=== PATIENT | female | born 1970 | race Caucasian/White ===

== ENCOUNTER 2022-01-11 23:14 | Inpatient (IN) | payer OTHER, SELFPAY ==
[2022-01-12 00:10] VITALS: BP 121/80; PULSE 84; RESP 16; TEMP 36.4; O2SAT 94
[2022-01-12] MEDS: traZODone HCL 50 MG TABLET PO ×2 (00:19→20:55)
--- NOTE | 2022-01-12 02:18 | PC.ADMIT ---
Rowena is a 51 year old female who presented to [facility] with increased depression and suicidal thoughts to overdose on her medications. Current stressors are her mother is moving to [place] and patient is unemployed and has not been able to find a new job. Patient has a history of trauma and past suicide attempts. Patient reports a past history of ECT and reports she normally gets treatment once per month with her next scheduled session to be on Thursday January 13, 2022. Patient would like to continue with ECT treatment here at [facility]. Patient feels that her current support system is not working for her and feels she needs to make some adjustments. Patient was cooperative on admission and signed in on a CV. Patient was pleasant and answered all asked questions. Patient has sleep apnea and she reports that she uses a mouth guard at night to help. Patient also reports migraines.
[2022-01-12 07:59] VITALS: BP 108/78; PULSE 69; RESP 17; TEMP 36.6; O2SAT 97
[2022-01-12 07:59] LABS: Estimated Average Glucose 94 mg/dL; Hemoglobin A1c % 4.9 %
[2022-01-12 08:03] LABS: Cholesterol 235 mg/dL; HDL Cholesterol 83 mg/dL; LDL Cholesterol Calculated 139 mg/dl; Triglycerides 66 mg/dL
[2022-01-12 08:21] LABS: Free T4 (Free Thyroxine) 1.06 ng/dL (0.71-1.85); Thyroid Stimulating Hormone 0.55 uIU/mL (0.32-4.0)
[2022-01-12] MEDS: ARIPiprazole 10 MG TABLET PO (08:38)
[2022-01-12] MEDS: Methylphenidate HCl 5 MG TABLET PO ×2 (08:38→13:04)
[2022-01-12 09:35] LABS: Folate > 20.0 ng/mL (> or = 4.0); Vitamin B12 671 pg/mL (200-900)
[2022-01-12 13:24] VITALS: BMI 29.2
[2022-01-12] MEDS: Sodium Bicarbonate 650 MG TABLET 1300 MG PO ×2 (13:29→20:51)
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
[2022-01-12 20:40] VITALS: BP 112/66; PULSE 80; TEMP 36.7; O2SAT 91
[2022-01-12] MEDS: FLUoxetine HCl 20 MG CAPSULE 80 MG PO (20:51)
--- NOTE | 2022-01-13 | ECG_ITS ---
Test Reason : ECT CLEARENCE Blood Pressure : / mmHG Vent. Rate : 067 BPM Atrial Rate : 067 BPM P-R Int : 174 ms QRS Dur : 090 ms QT Int : 402 ms P-R-T Axes : 039 050 067 degrees QTc Int : 424 ms Normal sinus rhythm Normal ECG No previous ECGs available Referred By: Ranjan Alicea Electronically Signed By:TONY BAUER MD
[2022-01-13 08:21] VITALS: BP 105/62; PULSE 65; RESP 17; TEMP 36.6; O2SAT 96
[2022-01-13] MEDS: Methylphenidate HCl 5 MG TABLET PO ×2 (08:49→13:39)
[2022-01-13] MEDS: Sodium Bicarbonate 650 MG TABLET 1300 MG PO ×2 (08:49→21:17)
[2022-01-13] MEDS: ARIPiprazole 10 MG TABLET PO (08:49)
--- NOTE | 2022-01-13 10:48 | P.CONHOSP_ITS ---
History of Present Illness Data of Consult Service Date: 01/13/22 Primary Care Provider: Wilson Solorzano MD HPI Reason for consult: Routine Medical H&P This is a 51 year old female who is admitted to the inpatient psychiatric unit. Medical consult requested for routine medical H&P. Pt seen and examined in the exam room. Floor RN bedside. Pt reports a history of IBS for which she takes intermittent loperamide. Reports history of MI - on a mouth guard for this. PMH IBS MI PSH ACL repair FH Abdominal cancer in father -- diagnosed in his 60s SH Denies Tobacco, alcohol, illicit substance Review of Systems Review of Systems: negative except HPI [facility] Medical History (Updated 01/13/22 @ 11:23 by Aaron Martin MD) Irritable bowel Migraines Sleep apnea Social History Household Members: Spouse Housing: House Do you presently have visiting nurse or other home services: No Patient Tobacco Use Status: Never used Tobacco Use of substances other than those prescribed or required for medical reasons: No Currently Displaying Signs/Symptoms of Drug Intoxication Withdrawal: No Any prior treatment program specific to substance use: No Have you been hit, kicked, punched, or otherwise hurt by someone within the past year? If so, by whom?: No Do you feel safe in your current relationship?: Yes Is there a partner from a previous relationship who is making you feel unsafe now?: No Are you made to feel afraid or neglected: No Spiritual Healthcare Practices: [facility] Evangelical Healthcare Practices: see above Cultural Healthcare Practices: none reported. Advance Directives: No Advance Directives Information Provided: No Advance Directives on File: No Do you have thoughts of harming others: None Do you have a plan to hurt others: No Plan Recently lost weight without trying: No Eating poorly because of decreased appetite: No Nutrition Risks: No Nutritional Risk Patient : No : No Poor oral hygiene: No service: No Sexual orientation: Straight/Heterosexual Meds Allergies Allergy/AdvReac Type Severity Reaction Status Date / Time Sulfa (Sulfonamide AdvReac Wheezing Verified 01/12/22 00:35 Antibiotics) Active Medications: Current Medications Acetaminophen (Acetaminophen 325 Mg Tablet) 650 mg PO Q6H PRN PRN Reason: Headache/Pain Mild Scale (1-3) Al Hydroxide/Mg Hydroxide (Magnesium Hydrox/Alum Hydrox 30 Ml Oral.Susp) 30 ml PO Q6H PRN PRN Reason: Heartburn/Nausea Aripiprazole (Aripiprazole 10 Mg Tablet) 10 mg PO DAILY [facility] Last Admin: 01/13/22 08:49 Dose: 10 mg Documented by: Fluoxetine HCl (Fluoxetine Hcl 20 Mg Capsule) 80 mg PO BEDTIME [facility] Last Admin: 01/12/22 20:51 Dose: 80 mg Documented by: Hydroxyzine HCl (Hydroxyzine Hcl 25 Mg Tablet) 25 mg PO Q6H PRN PRN Reason: Anxiety Lorazepam (Lorazepam 1 Mg Tablet) 1 mg PO BID PRN PRN Reason: severe anxiety Magnesium Hydroxide (Milk Of Magnesia 30 Ml Oral.Susp) 30 ml PO DAILY PRN PRN Reason: Constipation Methylphenidate HCl (Methylphenidate Hcl 5 Mg Tablet) 5 mg PO BID@0800,1300 [facility] Last Admin: 01/13/22 08:49 Dose: 5 mg Documented by: Sodium Bicarbonate (Sodium Bicarbonate 650 Mg Tablet) 1,300 mg PO BID [facility] Last Admin: 01/13/22 08:49 Dose: 1,300 mg Documented by: Sumatriptan Succinate (Sumatriptan Succinate 100 Mg Tablet) 100 mg PO DAILY PRN PRN Reason: Migraine Headache Trazodone HCl (Trazodone Hcl 50 Mg Tablet) 50 mg PO BEDTIME PRN PRN Reason: Insomnia Last Admin: 01/12/22 20:55 Dose: 50 mg Documented by: Home Medications Medication Instructions Recorded Confirmed Last Taken Type aripiprazole 10 mg tablet (Abilify) 10 mg PO DAILY 01/12/22 01/12/22 Unknown History methylphenidate HCl 5 mg tablet 5 mg PO BID@0800,1300 01/12/22 01/12/22 01/10/22 History (Ritalin) [id number] acid See Rx Instructions .ROUTE .COMPLEX 01/12/22 Unknown History 400 mcg-vitamin K 80 mcg capsule (Multi For Her 50 Plus) sodium bicarbonate 650 mg tablet 650 mg PO QID PRN 01/12/22 01/12/22 Unknown History Physical Exam Vital Signs and Narrative: Vital Signs: Last Vital Signs Temp 97.9 F 01/13/22 08:21 Pulse 65 01/13/22 08:21 Resp 17 01/13/22 08:21 BP 105/62 01/13/22 08:21 Pulse Ox 96 01/13/22 08:21 BMI result Body Mass Index 29.2 Const: Other: Constitutional - Awake and Alert, No apparent distress Eyes - PERRLA, EOMI Cardiovascular - S1S2, RRR, No edema Respiratory - Normal lung expansion, Normal respiratory effort, No respiratory distress, CTA bilaterally Gastrointestinal - NT / ND; +BS; No rebound or guarding - No CVA tenderness Extremities - no calf tenderness bilaterally, no swelling Musculoskeletal - Normal inspection, normal ROM Skin - Warm/Dry Neurological - Alert & oriented x3, No focal deficit; CN 2-12 intact b/l Psychological - Flat affect Assessment and Plan (1) Routine medical exam: Status: Acute Plan This is a 51 year old female who is admitted to the inpatient psychiatric unit. Medical consult requested for routine medical H&P. No active medical issues. For her MI -- would recommend to bring her mouth piece / guard she uses. Will sign off at this time. Please reconsult PRN.
--- NOTE | 2022-01-13 12:22 | P.PNPSI_ITS ---
Subjective Subjective Date of Service: 01/13/22 Reason For Visit: Unspecified bipolar d/o Interim History: pt reports no changes from yesterday. endorses SI without intent or plan here but multiple ideas for outside of the hospital. states she is safe here for the time being. asks for loperamide 2 mg every 3 days, which is prescribed for todat, 01/16, and 01/19. states she is sleeping OK, eating OK, toileting OK. mood not so great. would like to pursue ECT. per staff, attending groups. anx 05/16. feels ECT has not been working for her recently. depression 08/16. if i got the chance, i'd kill myself. safe here bcse no opportunities. pacing, calm, cooperative. Mental Status Exam Mental Status Exam Narrative: appropriately dressed and groomed. cooperative with interview. general PMR, fair eye contact. speech soft, slowed, decreased in amount. thoughts linear and logical. affect constricted. mood not so great. SI continues. no HI/AVH expressed. Diagnostics Vital Signs (24Hr): Vital Signs - 24 hr 01/12/22 20:40 01/13/22 08:21 Temperature 98.1 F 97.9 F Pulse Rate 80 65 Respiratory Rate 17 Blood Pressure 112/66 105/62 Pulse Oximetry 91 L 96 BMI result Body Mass Index 29.2 Labs Labs: Laboratory Results - last 48 hr 01/12/22 01/12/22 01/12/22 07:33 07:33 07:33 Estimat Average Glucose 94 Hemoglobin A1c % 4.9 Magnesium 2.0 Triglycerides 66 Cholesterol 235 LDL Cholesterol, Calc 139 HDL Cholesterol 83 Vitamin B12 671 Folate > 20.0 TSH 0.55 Free T4 1.06 Medications Medications Current Medications Acetaminophen (Acetaminophen 325 Mg Tablet) 650 mg PO Q6H PRN PRN Reason: Headache/Pain Mild Scale (1-3) Al Hydroxide/Mg Hydroxide (Magnesium Hydrox/Alum Hydrox 30 Ml Oral.Susp) 30 ml PO Q6H PRN PRN Reason: Heartburn/Nausea Aripiprazole (Aripiprazole 10 Mg Tablet) 10 mg PO DAILY [facility] Last Admin: 01/13/22 08:49 Dose: 10 mg Documented by: Fluoxetine HCl (Fluoxetine Hcl 20 Mg Capsule) 80 mg PO BEDTIME [facility] Last Admin: 01/12/22 20:51 Dose: 80 mg Documented by: Hydroxyzine HCl (Hydroxyzine Hcl 25 Mg Tablet) 25 mg PO Q6H PRN PRN Reason: Anxiety Loperamide HCl (Loperamide Hcl 2 Mg Capsule) 2 mg PO ONCE ONE Stop: 01/16/22 11:11 Loperamide HCl (Loperamide Hcl 2 Mg Capsule) 2 mg PO ONCE ONE Stop: 01/19/22 11:09 Lorazepam (Lorazepam 1 Mg Tablet) 1 mg PO BID PRN PRN Reason: severe anxiety Magnesium Hydroxide (Milk Of Magnesia 30 Ml Oral.Susp) 30 ml PO DAILY PRN PRN Reason: Constipation Methylphenidate HCl (Methylphenidate Hcl 5 Mg Tablet) 5 mg PO BID@0800,1300 [facility] Last Admin: 01/13/22 08:49 Dose: 5 mg Documented by: Sodium Bicarbonate (Sodium Bicarbonate 650 Mg Tablet) 1,300 mg PO BID [facility] Last Admin: 01/13/22 08:49 Dose: 1,300 mg Documented by: Sumatriptan Succinate (Sumatriptan Succinate 100 Mg Tablet) 100 mg PO DAILY PRN PRN Reason: Migraine Headache Trazodone HCl (Trazodone Hcl 50 Mg Tablet) 50 mg PO BEDTIME PRN PRN Reason: Insomnia Last Admin: 01/12/22 20:55 Dose: 50 mg Documented by: Allergies Allergies Allergy/AdvReac Type Severity Reaction Status Date / Time Sulfa (Sulfonamide AdvReac Wheezing Verified 01/12/22 00:35 Antibiotics) Assessment & Plan Assessment & Plan (1) Depressive disorder: Status: Acute Code(s): F32.A - Depression, unspecified (2) PTSD (post-traumatic stress disorder): Status: Acute Code(s): F43.10 - Post-traumatic stress disorder, unspecified (3) Routine medical exam: Status: Acute Code(s): Z00.00 - Encounter for general adult medical examination without abnormal findings Assessment and Plan: This is a 51 year old female who is admitted to the inpatient psychiatric unit. Medical consult requested for routine medical H&P. No active medical issues. For her MI -- would recommend to bring her mouth piece / guard she uses. Will sign off at this time. Please reconsult PRN. Plan continue outpt medications. medicine consult for ECT clearance. pt's to bring in mouth guard for MI. EKG labs for ECT clearance SUSAN signed, SW to [place] [facility] potential ECT start date of tuesday. I spent ____30__ minutes with the patient and/or on the patient floor today, greater than?50% of which was spent counseling/coordinating care. Reason for contiued inpatient stay Substantial Risk for: harm to self, inability to function and rapid decompensation
[2022-01-13] MEDS: Loperamide HCl 2 MG CAPSULE PO (13:39)
[2022-01-13 13:53] LABS: MANUAL DIFF FLAG NO
[2022-01-13 13:56] LABS: Basophils Percent Auto 0.2 % (0-2); Eosinophils Absolute Auto 0.1 X10*3/uL (0.0-0.4); Eosinophils Percent Auto 1.1 % (0-4); Hematocrit 38.9 % (37.0-47.0); Hemoglobin 12.7 g/dl (12.0-16.0); Imm Gran Abs Auto 0.04 X10*3/uL (0.00-0.03); Imm Gran Pct Auto 0.5 % (0.0-0.4); Lymphocytes Absolute Auto 1.5 X10*3/uL (1.2-4.9); Lymphocytes Percent Auto 17.9 % (20-40); Mean Corpuscular HGB Conc 32.6 g/dl (31.0-35.0); Mean Corpuscular Hemoglobin 31.3 pg (27.0-33.0); Mean Corpuscular Volume 95.8 fL (80.0-98.0); Mean Platelet Volume 8.1 fL (9.4-12.3); Monocytes Absolute Auto 0.5 X10*3/uL (0.1-1.2); Monocytes Percent Auto 6.4 % (2-11); Neutrophils Absolute Auto 6.1 x10*3/uL (2.0-8.3); Neutrophils Percent Auto 73.9 % (45-73); Platelet Count 236 X10*3/uL (160-400); Red Blood Count 4.06 X10*6/uL (4.20-5.50); Red Cell Distribution Width 13.1 % (11.0-16.0); White Blood Count 8.3 X10*3/uL (4.8-10.8)
[2022-01-13 14:11] LABS: Anion Gap 12 (12-20); Blood Urea Nitrogen 28 mg/dL (9-16); Calcium 9.6 mg/dL (8.4-10.2); Carbon Dioxide 26 mmol/L (22-29); Chloride 103 mmol/L (96-108); Creatinine Clr Calc Pharmacy 52.5; Estimated Glomerular Filt Rate 42; Glucose Random 112 mg/dL (60-115); Potassium 4.4 mmol/L (3.3-5.1); Sodium 137 mmol/L (135-145)
[2022-01-13 20:15] VITALS: BP 127/68; PULSE 68; RESP 16; TEMP 36.7; O2SAT 99
[2022-01-13] MEDS: FLUoxetine HCl 20 MG CAPSULE 80 MG PO (21:16)
[2022-01-13] MEDS: traZODone HCL 50 MG TABLET PO (21:21)
[2022-01-14 07:00] VITALS: BMI 29.8
[2022-01-14] MEDS: ARIPiprazole 10 MG TABLET PO (08:30)
[2022-01-14] MEDS: Sodium Bicarbonate 650 MG TABLET 1300 MG PO ×2 (08:30→21:20)
[2022-01-14] MEDS: Methylphenidate HCl 5 MG TABLET PO (08:30)
[2022-01-14 08:53] VITALS: BP 115/73; PULSE 74; RESP 18; TEMP 36.4; O2SAT 99
[2022-01-14] MEDS: Methylphenidate HCl 5 MG TABLET 7.5 MG PO (12:49)
--- NOTE | 2022-01-14 14:05 | P.PNPSI_ITS ---
Subjective Subjective Date of Service: 01/14/22 Reason For Visit: Unspecified bipolar d/o Interim History: pt appears blunted, comes for interview. states she is having a bad day today. more down, doesn't have any insight why that might be. plan for ECT reviewed, attempting to get records from [facility]. request was faxed this morning. agreeable to increase methylphenidate to 7.5 mg BID. informed she was medically cleared for ECT yesterday. per staff, Q5 min checks at night due to mouth guard. sad re father's passing, mother's selling home. safe in hospital, not outside. pacing eves. quiet, visible, watching TV. slept well overnight. Mental Status Exam Mental Status Exam Narrative: appropriately dressed and groomed. cooperative with interview. general PMR, fair eye contact. speech soft, slowed, decreased in amount. thoughts linear and logical. affect blunted. mood more down today. SI continues. no HI/AVH expressed. Diagnostics Vital Signs (24Hr): Vital Signs - 24 hr 01/13/22 20:15 01/14/22 08:53 Temperature 98.0 F 97.6 F Pulse Rate 68 74 Respiratory Rate 16 18 Blood Pressure 127/68 115/73 Pulse Oximetry 99 99 BMI result Body Mass Index 29.2 Labs Results: 01/13/22 13:47 01/13/22 13:47 Labs: Laboratory Results - last 48 hr 01/13/22 01/13/22 13:47 13:47 WBC 8.3 RBC 4.06 L Hgb 12.7 Hct 38.9 MCV 95.8 MCH 31.3 MCHC 32.6 RDW 13.1 Plt Count 236 MPV 8.1 L Immature Gran % (Auto) 0.5 H Neut % (Auto) 73.9 H Lymph % (Auto) 17.9 L [place] % (Auto) 6.4 Eos % (Auto) 1.1 Baso % (Auto) 0.2 Lymph # (Auto) 1.5 [place] # (Auto) 0.5 Eos # (Auto) 0.1 Baso # (Auto) 0.0 Abs Immat Gran (auto) 0.04 H Absolute Neuts (auto) 6.1 Absolute Nucleated RBC 0.000 Nucleated RBC % (auto) 0.0 Sodium 137 Potassium 4.4 Chloride 103 Carbon Dioxide 26 Anion Gap 12 BUN 28 H Creatinine 1.32 Estim Creat Clear Calc 52.5 Estimated GFR 42 Random Glucose 112 Calcium 9.6 Medications Medications Current Medications Acetaminophen (Acetaminophen 325 Mg Tablet) 650 mg PO Q6H PRN PRN Reason: Headache/Pain Mild Scale (1-3) Al Hydroxide/Mg Hydroxide (Magnesium Hydrox/Alum Hydrox 30 Ml Oral.Susp) 30 ml PO Q6H PRN PRN Reason: Heartburn/Nausea Aripiprazole (Aripiprazole 10 Mg Tablet) 10 mg PO DAILY [facility] Last Admin: 01/14/22 08:30 Dose: 10 mg Documented by: Fluoxetine HCl (Fluoxetine Hcl 20 Mg Capsule) 80 mg PO BEDTIME [facility] Last Admin: 01/13/22 21:16 Dose: 80 mg Documented by: Hydroxyzine HCl (Hydroxyzine Hcl 25 Mg Tablet) 25 mg PO Q6H PRN PRN Reason: Anxiety Loperamide HCl (Loperamide Hcl 2 Mg Capsule) 2 mg PO ONCE ONE Stop: 01/16/22 11:11 Loperamide HCl (Loperamide Hcl 2 Mg Capsule) 2 mg PO ONCE ONE Stop: 01/19/22 11:09 Lorazepam (Lorazepam 1 Mg Tablet) 1 mg PO BID PRN PRN Reason: severe anxiety Magnesium Hydroxide (Milk Of Magnesia 30 Ml Oral.Susp) 30 ml PO DAILY PRN PRN Reason: Constipation Methylphenidate HCl (Methylphenidate Hcl 5 Mg Tablet) 7.5 mg PO BID@0800,1300 [facility] Last Admin: 01/14/22 12:49 Dose: 7.5 mg Documented by: Sodium Bicarbonate (Sodium Bicarbonate 650 Mg Tablet) 1,300 mg PO BID [facility] Last Admin: 01/14/22 08:30 Dose: 1,300 mg Documented by: Sumatriptan Succinate (Sumatriptan Succinate 100 Mg Tablet) 100 mg PO DAILY PRN PRN Reason: Migraine Headache Trazodone HCl (Trazodone Hcl 50 Mg Tablet) 50 mg PO BEDTIME PRN PRN Reason: Insomnia Last Admin: 01/13/22 21:21 Dose: 50 mg Documented by: Allergies Allergies Allergy/AdvReac Type Severity Reaction Status Date / Time Sulfa (Sulfonamide AdvReac Wheezing Verified 01/12/22 00:35 Antibiotics) Assessment & Plan Assessment & Plan (1) Depressive disorder: Status: Acute Code(s): F32.A - Depression, unspecified (2) PTSD (post-traumatic stress disorder): Status: Acute Code(s): F43.10 - Post-traumatic stress disorder, unspecified (3) Routine medical exam: Status: Acute Code(s): Z00.00 - Encounter for general adult medical examination without abnormal findings Plan continue outpt medications; methylphenidate increased from 5 BID to 7.5 BID as of 01/14. medicine consult for ECT clearance completed; pt cleared. pt's to brought in mouth guard for MI. on Q5 mnin checks NOC. SUSAN signed, faxed to [facility] 01/14/22. potential ECT start date of tuesday. I spent ___35___ minutes with the patient and/or on the patient floor today, greater than?50% of which was spent counseling/coordinating care. Reason for contiued inpatient stay Substantial Risk for: harm to self, inability to function and rapid decompensation
[2022-01-14 21:00] VITALS: BP 123/69; PULSE 75; RESP 17; TEMP 36.9; O2SAT 96
[2022-01-14] MEDS: FLUoxetine HCl 20 MG CAPSULE 80 MG PO (21:12)
[2022-01-14] MEDS: traZODone HCL 50 MG TABLET PO (21:20)
[2022-01-15] MEDS: ARIPiprazole 10 MG TABLET PO (09:08)
[2022-01-15] MEDS: Methylphenidate HCl 5 MG TABLET 7.5 MG PO ×2 (09:08→12:52)
[2022-01-15] MEDS: Sodium Bicarbonate 650 MG TABLET 1300 MG PO ×2 (09:09→22:09)
[2022-01-15 09:20] VITALS: BP 116/73; PULSE 75; RESP 20; TEMP 36.3; O2SAT 98
--- NOTE | 2022-01-15 13:23 | P.PNPSI_ITS ---
Subjective Subjective Date of Service: 01/15/22 Reason For Visit: Unspecified bipolar d/o Interim History: pt agreeable for interview. calm, cooperative, flat. states she met with dr. boyer and will be starting ECT on tuesday. reports since increasing the stimulant dosing she is feeling a little better. SI is more in the back of my mind. sleeping OK, eating OK, getting along with others well. per staff, attending groups. depression 08/16 yesterday. anxiety 04/16. did not receive ECT today. quiet, isolative, delayed. +SI, no plan. declined 1:1 mtg. slept well. Mental Status Exam Mental Status Exam Narrative: appropriately dressed and groomed. cooperative with interview. general PMR, fair eye contact. speech soft, slowed, decreased in amount. thoughts linear an d logical. affect blunted. mood feeling a little better. SI more in the back of my mind. no HI/AVH expressed. Diagnostics Vital Signs (24Hr): Vital Signs - 24 hr 01/14/22 21:00 01/15/22 09:20 Temperature 98.4 F 97.3 F Pulse Rate 75 75 Respiratory Rate 17 20 Blood Pressure 123/69 116/73 Pulse Oximetry 96 98 BMI result Body Mass Index 29.8 Labs Results: 01/13/22 13:47 01/13/22 13:47 Labs: Laboratory Results - last 48 hr 01/13/22 01/13/22 13:47 13:47 WBC 8.3 RBC 4.06 L Hgb 12.7 Hct 38.9 MCV 95.8 MCH 31.3 MCHC 32.6 RDW 13.1 Plt Count 236 MPV 8.1 L Immature Gran % (Auto) 0.5 H Neut % (Auto) 73.9 H Lymph % (Auto) 17.9 L [place] % (Auto) 6.4 Eos % (Auto) 1.1 Baso % (Auto) 0.2 Lymph # (Auto) 1.5 [place] # (Auto) 0.5 Eos # (Auto) 0.1 Baso # (Auto) 0.0 Abs Immat Gran (auto) 0.04 H Absolute Neuts (auto) 6.1 Absolute Nucleated RBC 0.000 Nucleated RBC % (auto) 0.0 Sodium 137 Potassium 4.4 Chloride 103 Carbon Dioxide 26 Anion Gap 12 BUN 28 H Creatinine 1.32 Estim Creat Clear Calc 52.5 Estimated GFR 42 Random Glucose 112 Calcium 9.6 Medications Medications Current Medications Acetaminophen (Acetaminophen 325 Mg Tablet) 650 mg PO Q6H PRN PRN Reason: Headache/Pain Mild Scale (1-3) Al Hydroxide/Mg Hydroxide (Magnesium Hydrox/Alum Hydrox 30 Ml Oral.Susp) 30 ml PO Q6H PRN PRN Reason: Heartburn/Nausea Aripiprazole (Aripiprazole 10 Mg Tablet) 10 mg PO DAILY [facility] Last Admin: 01/15/22 09:08 Dose: 10 mg Documented by: Fluoxetine HCl (Fluoxetine Hcl 20 Mg Capsule) 80 mg PO BEDTIME [facility] Last Admin: 01/14/22 21:12 Dose: 80 mg Documented by: Hydroxyzine HCl (Hydroxyzine Hcl 25 Mg Tablet) 25 mg PO Q6H PRN PRN Reason: Anxiety Loperamide HCl (Loperamide Hcl 2 Mg Capsule) 2 mg PO ONCE ONE Stop: 01/16/22 11:11 Loperamide HCl (Loperamide Hcl 2 Mg Capsule) 2 mg PO ONCE ONE Stop: 01/19/22 11:09 Lorazepam (Lorazepam 1 Mg Tablet) 1 mg PO BID PRN PRN Reason: severe anxiety Magnesium Hydroxide (Milk Of Magnesia 30 Ml Oral.Susp) 30 ml PO DAILY PRN PRN Reason: Constipation Methylphenidate HCl (Methylphenidate Hcl 5 Mg Tablet) 7.5 mg PO BID@0800,1300 [facility] Last Admin: 01/15/22 12:52 Dose: 7.5 mg Documented by: Sodium Bicarbonate (Sodium Bicarbonate 650 Mg Tablet) 1,300 mg PO BID [facility] Last Admin: 01/15/22 09:09 Dose: 1,300 mg Documented by: Sumatriptan Succinate (Sumatriptan Succinate 100 Mg Tablet) 100 mg PO DAILY PRN PRN Reason: Migraine Headache Trazodone HCl (Trazodone Hcl 50 Mg Tablet) 50 mg PO BEDTIME PRN PRN Reason: Insomnia Last Admin: 01/14/22 21:20 Dose: 50 mg Documented by: Allergies Allergies Allergy/AdvReac Type Severity Reaction Status Date / Time Sulfa (Sulfonamide AdvReac Wheezing Verified 01/12/22 00:35 Antibiotics) Assessment & Plan Assessment & Plan (1) Depressive disorder: Status: Acute Code(s): F32.A - Depression, unspecified (2) PTSD (post-traumatic stress disorder): Status: Acute Code(s): F43.10 - Post-traumatic stress disorder, unspecified (3) Routine medical exam: Status: Acute Code(s): Z00.00 - Encounter for general adult medical examination without abnormal findings Plan continue outpt medications; methylphenidate increased from 5 BID to 7.5 BID as of 01/14. medicine consult for ECT clearance completed; pt cleared. pt's to brought in mouth guard for MI[facility] SUSAN signed, faxed to [facility] 01/14/22. ECT records received 01/15. ECT start date of thursday 01/18. I spent ___25___ minutes with the patient and/or on the patient floor today, greater than?50% of which was spent counseling/coordinating care. Reason for contiued inpatient stay Substantial Risk for: harm to self, inability to function and rapid decompensation
--- NOTE | 2022-01-15 15:19 | P.CONAN1_ITS ---
History of Present Illness Consult details Consult date: 01/18/22 Reason for consult: other Requesting physician: Reese Remy Narrative: Patient discharged from [facility] on ____ from a psychiatric admission. Seen for ECT clearance. [facility] Past Medical History Medical History (Updated 01/15/22 @ 15:22 by Che Villareal NP) Depressive disorder Irritable bowel Migraines Sleep apnea Social History Social History Household Members: Spouse Housing: House Do you presently have visiting nurse or other home services: No Patient Tobacco Use Status: Never used Tobacco Use of substances other than those prescribed or required for medical reasons: No Currently Displaying Signs/Symptoms of Drug Intoxication Withdrawal: No Any prior treatment program specific to substance use: No Have you been hit, kicked, punched, or otherwise hurt by someone within the past year? If so, by whom?: No Do you feel safe in your current relationship?: Yes Is there a partner from a previous relationship who is making you feel unsafe now?: No Are you made to feel afraid or neglected: No Spiritual Healthcare Practices: Yarsanism Confucianist Healthcare Practices: see above Cultural Healthcare Practices: none reported. Advance Directives: No Advance Directives Information Provided: No Advance Directives on File: No Do you have thoughts of harming others: None Do you have a plan to hurt others: No Plan Recently lost weight without trying: No Eating poorly because of decreased appetite: No Nutrition Risks: No Nutritional Risk Patient : No : No Poor oral hygiene: No service: No Sexual orientation: Straight/Heterosexual Meds Allergies Allergy/AdvReac Type Severity Reaction Status Date / Time Sulfa (Sulfonamide AdvReac Wheezing Verified 01/12/22 00:35 Antibiotics) Active Medications: Current Medications Acetaminophen (Acetaminophen 325 Mg Tablet) 650 mg PO Q6H PRN PRN Reason: Headache/Pain Mild Scale (1-3) Al Hydroxide/Mg Hydroxide (Magnesium Hydrox/Alum Hydrox 30 Ml Oral.Susp) 30 ml PO Q6H PRN PRN Reason: Heartburn/Nausea Aripiprazole (Aripiprazole 10 Mg Tablet) 10 mg PO DAILY [facility] Last Admin: 01/15/22 09:08 Dose: 10 mg Documented by: Fluoxetine HCl (Fluoxetine Hcl 20 Mg Capsule) 80 mg PO BEDTIME [facility] Last Admin: 01/14/22 21:12 Dose: 80 mg Documented by: Hydroxyzine HCl (Hydroxyzine Hcl 25 Mg Tablet) 25 mg PO Q6H PRN PRN Reason: Anxiety Loperamide HCl (Loperamide Hcl 2 Mg Capsule) 2 mg PO ONCE ONE Stop: 01/16/22 11:11 Loperamide HCl (Loperamide Hcl 2 Mg Capsule) 2 mg PO ONCE ONE Stop: 01/19/22 11:09 Lorazepam (Lorazepam 1 Mg Tablet) 1 mg PO BID PRN PRN Reason: severe anxiety Magnesium Hydroxide (Milk Of Magnesia 30 Ml Oral.Susp) 30 ml PO DAILY PRN PRN Reason: Constipation Methylphenidate HCl (Methylphenidate Hcl 5 Mg Tablet) 7.5 mg PO BID@0800,1300 [facility] Last Admin: 01/15/22 12:52 Dose: 7.5 mg Documented by: Sodium Bicarbonate (Sodium Bicarbonate 650 Mg Tablet) 1,300 mg PO BID [facility] Last Admin: 01/15/22 09:09 Dose: 1,300 mg Documented by: Sumatriptan Succinate (Sumatriptan Succinate 100 Mg Tablet) 100 mg PO DAILY PRN PRN Reason: Migraine Headache Trazodone HCl (Trazodone Hcl 50 Mg Tablet) 50 mg PO BEDTIME PRN PRN Reason: Insomnia Last Admin: 01/14/22 21:20 Dose: 50 mg Documented by: Home Medications Medication Instructions Recorded Confirmed Last Taken Type aripiprazole 10 mg tablet (Abilify) 10 mg PO DAILY 01/12/22 01/12/22 Unknown History methylphenidate HCl 5 mg tablet 5 mg PO BID@0800,1300 01/12/22 01/12/22 01/10/22 History (Ritalin) [id number] acid See Rx Instructions .ROUTE .COMPLEX 01/12/22 Unknown History 400 mcg-vitamin K 80 mcg capsule (Multi For Her 50 Plus) sodium bicarbonate 650 mg tablet 650 mg PO QID PRN 01/12/22 01/12/22 Unknown History Physical Exam Vital Signs: Vital Signs: Last Vital Signs Temp 97.3 F 01/15/22 09:20 Pulse 75 01/15/22 09:20 Resp 20 01/15/22 09:20 BP 116/73 01/15/22 09:20 Pulse Ox 98 01/15/22 09:20 BMI result Body Mass Index 29.8 Results Labs Result diagrams: 01/13/22 13:47 01/13/22 13:47 Labs: All other labs normal.
[2022-01-15 22:03] VITALS: BP 119/67; PULSE 76; TEMP 36.6; O2SAT 96
[2022-01-15] MEDS: FLUoxetine HCl 20 MG CAPSULE 80 MG PO (22:10)
[2022-01-15] MEDS: traZODone HCL 50 MG TABLET PO (22:10)
[2022-01-16 08:58] VITALS: BP 116/68; PULSE 70; RESP 16; TEMP 36.3; O2SAT 100
[2022-01-16] MEDS: Methylphenidate HCl 5 MG TABLET 7.5 MG PO ×2 (09:07→13:36)
[2022-01-16] MEDS: ARIPiprazole 10 MG TABLET PO (09:07)
[2022-01-16] MEDS: Sodium Bicarbonate 650 MG TABLET 1300 MG PO ×2 (09:10→21:21)
--- NOTE | 2022-01-16 09:52 | P.PNPSI_ITS ---
Subjective Subjective Date of Service: 01/16/22 Reason For Visit: Unspecified bipolar d/o Subjective Notes: Conditional Voluntary Interim History: pt easily engaged; calm, cooperative, flat. reports starting ECT on tuesday. reports SI is still present but is less intense. sleeping fair, eating, taking fluids, getting along with others well. per staff, attending groups. Still reports depression 08/16 and anxiety 04/16. Medication Compliance: Yes Side effects from medications: No Attending Groups: Yes Review of Systems Acute medical concerns: No Medical Review of Systems: unchanged Review of Systems Review of Systems small blister on left heel Yes all other systems are reviewed and are negative Mental Status Exam Mental Status Exam Narrative: appropriately dressed and groomed. cooperative with interview. fair eye contact. speech soft, slowed, decreased in amount. thoughts linear and logical. affect blunted. mood feeling a little better. contiued SI but less intense and no plan or intent, no HI/AVH expressed. Judgement: Fair Diagnostics Vital Signs (24Hr): Vital Signs - 24 hr 01/15/22 22:03 01/16/22 08:58 Temperature 97.8 F 97.4 F Pulse Rate 76 70 Respiratory Rate 16 Blood Pressure 119/67 116/68 Pulse Oximetry 96 100 BMI result Body Mass Index 29.8 Labs Results: 01/13/22 13:47 01/13/22 13:47 Medications Medications Current Medications Acetaminophen (Acetaminophen 325 Mg Tablet) 650 mg PO Q6H PRN PRN Reason: Headache/Pain Mild Scale (1-3) Al Hydroxide/Mg Hydroxide (Magnesium Hydrox/Alum Hydrox 30 Ml Oral.Susp) 30 ml PO Q6H PRN PRN Reason: Heartburn/Nausea Aripiprazole (Aripiprazole 10 Mg Tablet) 10 mg PO DAILY [facility] Last Admin: 01/16/22 09:07 Dose: 10 mg Documented by: Fluoxetine HCl (Fluoxetine Hcl 20 Mg Capsule) 80 mg PO BEDTIME [facility] Last Admin: 01/15/22 22:10 Dose: 80 mg Documented by: Hydroxyzine HCl (Hydroxyzine Hcl 25 Mg Tablet) 25 mg PO Q6H PRN PRN Reason: Anxiety Loperamide HCl (Loperamide Hcl 2 Mg Capsule) 2 mg PO ONCE ONE Stop: 01/16/22 11:11 Loperamide HCl (Loperamide Hcl 2 Mg Capsule) 2 mg PO ONCE ONE Stop: 01/19/22 11:09 Lorazepam (Lorazepam 1 Mg Tablet) 1 mg PO BID PRN PRN Reason: severe anxiety Magnesium Hydroxide (Milk Of Magnesia 30 Ml Oral.Susp) 30 ml PO DAILY PRN PRN Reason: Constipation Methylphenidate HCl (Methylphenidate Hcl 5 Mg Tablet) 7.5 mg PO BID@0800,1300 [facility] Last Admin: 01/16/22 09:07 Dose: 7.5 mg Documented by: Sodium Bicarbonate (Sodium Bicarbonate 650 Mg Tablet) 1,300 mg PO BID [facility] Last Admin: 01/16/22 09:10 Dose: 1,300 mg Documented by: Sumatriptan Succinate (Sumatriptan Succinate 100 Mg Tablet) 100 mg PO DAILY PRN PRN Reason: Migraine Headache Trazodone HCl (Trazodone Hcl 50 Mg Tablet) 50 mg PO BEDTIME PRN PRN Reason: Insomnia Last Admin: 01/15/22 22:10 Dose: 50 mg Documented by: Allergies Allergies Allergy/AdvReac Type Severity Reaction Status Date / Time Sulfa (Sulfonamide AdvReac Wheezing Verified 01/12/22 00:35 Antibiotics) Assessment & Plan Assessment & Plan (1) Depressive disorder: Status: Acute Code(s): F32.A - Depression, unspecified (2) PTSD (post-traumatic stress disorder): Status: Acute Code(s): F43.10 - Post-traumatic stress disorder, unspecified (3) Routine medical exam: Status: Acute Code(s): Z00.00 - Encounter for general adult medical examination without abnormal findings Plan Plan continue outpt medications; methylphenidate increased from 5 BID to 7.5 BID as of 01/14. medicine consult for ECT clearance completed; pt cleared.to start ECT pt's to brought in mouth guard for MI.? on Q5 [facility] checks NOC. SUSAN signed, faxed to [facility] 01/14/22.? ECT records received 01/15. I spent ___15___ minutes with the patient and/or on the patient floor today, greater than?50% of which was spent counseling/coordinating care. I spent minutes with the patient and/or on the patient floor today, greater than?50% of which was spent counseling/coordinating care. Patient educated on: diagnosis, medication risk/benefits and therapeutic strategies Informed Consent: understands Reason for contiued inpatient stay Substantial Risk for: harm to self, inability to function and rapid decompensation
[2022-01-16] MEDS: Loperamide HCl 2 MG CAPSULE PO (13:36)
[2022-01-16 21:17] VITALS: BP 114/72; PULSE 65; TEMP 36.7; O2SAT 99
[2022-01-16] MEDS: traZODone HCL 50 MG TABLET PO (21:21)
[2022-01-16] MEDS: FLUoxetine HCl 20 MG CAPSULE 80 MG PO (21:21)
[2022-01-17] MEDS: traZODone HCL 50 MG TABLET PO ×2 (03:25→21:38)
[2022-01-17 06:00] VITALS: BP 112/58; PULSE 68; RESP 18; TEMP 36.6; O2SAT 98
[2022-01-17] MEDS: Sodium Bicarbonate 650 MG TABLET 1300 MG PO ×2 (09:53→21:38)
[2022-01-17] MEDS: Methylphenidate HCl 5 MG TABLET 7.5 MG PO ×2 (09:53→12:46)
[2022-01-17] MEDS: ARIPiprazole 10 MG TABLET PO (09:59)
--- NOTE | 2022-01-17 10:46 | P.PNPSI_ITS ---
Subjective Subjective Date of Service: 01/17/22 Reason For Visit: Unspecified bipolar d/o Interim History: pt still depressed and anxious; passive SI. reports she slept better Medication Compliance: Yes Side effects from medications: No Review of Systems Acute medical concerns: No Medical Review of Systems: unchanged Review of Systems Review of Systems no change Mental Status Exam Mental Status Exam Narrative: appropriately dressed and groomed. cooperative with interview. fair eye contac t. speech soft, slowed, decreased in amount. thoughts linear and logical. affect blunted. mood feeling a little better. contiued passive SI but less intense and no plan or intent, no HI/AVH expressed. Diagnostics Vital Signs (24Hr): Vital Signs - 24 hr 01/16/22 21:17 Temperature 98.0 F Pulse Rate 65 Blood Pressure 114/72 Pulse Oximetry 99 BMI result Body Mass Index 29.8 Labs Results: 01/13/22 13:47 01/13/22 13:47 Medications Medications Current Medications Acetaminophen (Acetaminophen 325 Mg Tablet) 650 mg PO Q6H PRN PRN Reason: Headache/Pain Mild Scale (1-3) Al Hydroxide/Mg Hydroxide (Magnesium Hydrox/Alum Hydrox 30 Ml Oral.Susp) 30 ml PO Q6H PRN PRN Reason: Heartburn/Nausea Aripiprazole (Aripiprazole 10 Mg Tablet) 10 mg PO DAILY [facility] Last Admin: 01/17/22 09:59 Dose: 10 mg Documented by: Bacitracin (Bacitracin Oint 14 Gm Tube) 1 appl TOPICAL BID PRN; Protocol PRN Reason: blister Fluoxetine HCl (Fluoxetine Hcl 20 Mg Capsule) 80 mg PO BEDTIME [facility] Last Admin: 01/16/22 21:21 Dose: 80 mg Documented by: Hydroxyzine HCl (Hydroxyzine Hcl 25 Mg Tablet) 25 mg PO Q6H PRN PRN Reason: Anxiety Loperamide HCl (Loperamide Hcl 2 Mg Capsule) 2 mg PO ONCE ONE Stop: 01/19/22 11:09 Lorazepam (Lorazepam 1 Mg Tablet) 1 mg PO BID PRN PRN Reason: severe anxiety Magnesium Hydroxide (Milk Of Magnesia 30 Ml Oral.Susp) 30 ml PO DAILY PRN PRN Reason: Constipation Methylphenidate HCl (Methylphenidate Hcl 5 Mg Tablet) 7.5 mg PO BID@0800,1300 [facility] Last Admin: 01/17/22 09:53 Dose: 7.5 mg Documented by: Sodium Bicarbonate (Sodium Bicarbonate 650 Mg Tablet) 1,300 mg PO BID [facility] Last Admin: 01/17/22 09:53 Dose: 1,300 mg Documented by: Sumatriptan Succinate (Sumatriptan Succinate 100 Mg Tablet) 100 mg PO DAILY PRN PRN Reason: Migraine Headache Trazodone HCl (Trazodone Hcl 50 Mg Tablet) 50 mg PO BEDTIME PRN PRN Reason: Insomnia Last Admin: 01/17/22 03:25 Dose: 50 mg Documented by: Allergies Allergies Allergy/AdvReac Type Severity Reaction Status Date / Time Sulfa (Sulfonamide AdvReac Wheezing Verified 01/12/22 00:35 Antibiotics) Assessment & Plan Assessment & Plan (1) Depressive disorder: Status: Acute Code(s): F32.A - Depression, unspecified (2) PTSD (post-traumatic stress disorder): Status: Acute Code(s): F43.10 - Post-traumatic stress disorder, unspecified (3) Routine medical exam: Status: Acute Code(s): Z00.00 - Encounter for general adult medical examination without abnormal findings Plan Plan continue treatment plan ect schedule for Tuesday I spent ___15___ minutes with the patient and/or on the patient floor today, greater than?50% of which was spent counseling/coordinating care. I spent __15____ minutes with the patient and/or on the patient floor today, greater than?50% of which was spent counseling/coordinating care. Patient educated on: medication risk/benefits and therapeutic strategies Informed Consent: further education needed Reason for contiued inpatient stay Substantial Risk for: harm to self, inability to function and rapid decompensation
[2022-01-17 18:00] VITALS: BP 112/60; PULSE 74; RESP 16; TEMP 36.6; O2SAT 99
[2022-01-17] MEDS: FLUoxetine HCl 20 MG CAPSULE 80 MG PO (21:38)
[2022-01-18] VITALS (11 sets, daily range): BP systolic 97–127; BP diastolic 57–72; PULSE 63–80; RESP 12–18; TEMP 36.2–36.7; O2SAT 94–98; BMI 29.7
--- NOTE | 2022-01-18 07:24 | MHC.SHP ---
Pre-Procedural Eval Section A Date of Service: 01/18/22 The patient is an INPATIENT: Yes Changes since office visit: No Cold of Flu in the past 2 weeks, No New Medical Problems, No Changes in Medication and No Patient answered all questions The History & Physical has been completed within 30 days and I have reviewed it.: Yes Section B Chief Complaint: Unspecified bipolar d/o Relevant Family History (Specify if Yes): No Relevant Social History: None Present Medications: None Medical History: No relevant PMH History of Previous Operations: No relevant previous surgery Allergies: Allergies Allergy/AdvReac Type Severity Reaction Status Date / Time Sulfa (Sulfonamide AdvReac Wheezing Verified 01/12/22 00:35 Antibiotics) Review of Systems Sugical H&P ROS: Negative: Constitution, Cardiovascular, Respiratory, Neurological, Psychiatric, Hem-Onc, Allergic/Immunologic, Gastrointestinal, Genitourinary, Musculoskeletal, Integumentary, Endocrine and Eyes/Ears/Nose/Throat Exam Surgical H&P Exam: Normal: HEENT, Normal: Heart, Normal: Lungs, Normal: Extremities, Normal: Abdomen, Normal: Skin and Normal: Neurological Plan Diagnosis/Plan: Unchanged I have reviewed the history and physical and performed a pertinent physical examination on my patient. No changes have occurred unless specified.
--- NOTE | 2022-01-18 07:28 | P.CONAN_ITS ---
FORM[facility]LY [facility], [facility] Active Problems Active Problems: All Active Problems (Updated 01/15/22 @ 15:22 by Che Villareal NP) Depressive disorder (Acute) Routine medical exam (Acute) PTSD (post-traumatic stress disorder) (Acute) Obstructive sleep apnea (Acute) Past Medical History Medical History Depressive disorder Irritable bowel Migraines Sleep apnea Social History Social History Household Members: Spouse Housing: House Do you presently have visiting nurse or other home services: No Patient Tobacco Use Status: Never used Tobacco Use of substances other than those prescribed or required for medical reasons: No Currently Displaying Signs/Symptoms of Drug Intoxication Withdrawal: No Any prior treatment program specific to substance use: No Have you been hit, kicked, punched, or otherwise hurt by someone within the past year? If so, by whom?: No Do you feel safe in your current relationship?: Yes Is there a partner from a previous relationship who is making you feel unsafe now?: No Are you made to feel afraid or neglected: No Spiritual Healthcare Practices: Evangelical Hoahaoism Healthcare Practices: see above Cultural Healthcare Practices: none reported. Are you DNR?: No Advance Directives: No Advance Directives Information Provided: No Advance Directives on File: No Do you have thoughts of harming others: None Do you have a plan to hurt others: No Plan Recently lost weight without trying: No Eating poorly because of decreased appetite: No Nutrition Risks: No Nutritional Risk Patient : No : No Poor oral hygiene: No service: No Sexual orientation: Straight/Heterosexual Meds Allergies Allergy/AdvReac Type Severity Reaction Status Date / Time Sulfa (Sulfonamide AdvReac Wheezing Verified 01/12/22 00:35 Antibiotics) Active Medications: Current Medications Acetaminophen (Acetaminophen 325 Mg Tablet) 650 mg PO Q6H PRN PRN Reason: Headache/Pain Mild Scale (1-3) Al Hydroxide/Mg Hydroxide (Magnesium Hydrox/Alum Hydrox 30 Ml Oral.Susp) 30 ml PO Q6H PRN PRN Reason: Heartburn/Nausea Aripiprazole (Aripiprazole 10 Mg Tablet) 10 mg PO DAILY [facility] Last Admin: 01/17/22 09:59 Dose: 10 mg Documented by: Bacitracin (Bacitracin Oint 14 Gm Tube) 1 appl TOPICAL BID PRN; Protocol PRN Reason: blister Fluoxetine HCl (Fluoxetine Hcl 20 Mg Capsule) 80 mg PO BEDTIME [facility] Last Admin: 01/17/22 21:38 Dose: 80 mg Documented by: Hydroxyzine HCl (Hydroxyzine Hcl 25 Mg Tablet) 25 mg PO Q6H PRN PRN Reason: Anxiety Loperamide HCl (Loperamide Hcl 2 Mg Capsule) 2 mg PO ONCE ONE Stop: 01/19/22 11:09 Magnesium Hydroxide (Milk Of Magnesia 30 Ml Oral.Susp) 30 ml PO DAILY PRN PRN Reason: Constipation Methylphenidate HCl (Methylphenidate Hcl 5 Mg Tablet) 7.5 mg PO BID@0800,1300 [facility] Last Admin: 01/17/22 12:46 Dose: 7.5 mg Documented by: Sodium Bicarbonate (Sodium Bicarbonate 650 Mg Tablet) 1,300 mg PO BID [facility] Last Admin: 01/17/22 21:38 Dose: 1,300 mg Documented by: Sumatriptan Succinate (Sumatriptan Succinate 100 Mg Tablet) 100 mg PO DAILY PRN PRN Reason: Migraine Headache Trazodone HCl (Trazodone Hcl 50 Mg Tablet) 50 mg PO BEDTIME PRN PRN Reason: Insomnia Last Admin: 01/17/22 21:38 Dose: 50 mg Documented by: Home Medications Medication Instructions Recorded Confirmed Last Taken Type aripiprazole 10 mg tablet (Abilify) 10 mg PO DAILY 01/12/22 01/12/22 Unknown History methylphenidate HCl 5 mg tablet 5 mg PO BID@0800,1300 01/12/22 01/12/22 01/10/22 History (Ritalin) [id number] acid See Rx Instructions .ROUTE .COMPLEX 01/12/22 Unknown History 400 mcg-vitamin K 80 mcg capsule (Multi For Her 50 Plus) sodium bicarbonate 650 mg tablet 650 mg PO QID PRN 01/12/22 01/12/22 Unknown History Exam Exam Date and Time: January 18, [id number] Height,Weight and Vital Signs: Height 5 ft 5 in Weight 81.193 kg Last Vital Signs Temp 97.2 F 01/18/22 06:44 Pulse 72 01/18/22 06:44 Resp 18 01/18/22 06:44 BP 97/57 L 01/18/22 06:44 Pulse Ox 96 01/18/22 06:44 Pertinent Lab Results Pertinent Lab Results: Laboratory Tests 01/12/22 01/12/22 01/12/22 07:33 07:33 07:33 WBC RBC Hgb Hct MCV MCH MCHC RDW Plt Count MPV Immature Gran % (Auto) Neut % (Auto) Lymph % (Auto) [place] % (Auto) Eos % (Auto) Baso % (Auto) Lymph # (Auto) [place] # (Auto) Eos # (Auto) Baso # (Auto) Abs Immat Gran (auto) Absolute Neuts (auto) Absolute Nucleated RBC Nucleated RBC % (auto) Sodium Potassium Chloride Carbon Dioxide Anion Gap BUN Creatinine Estim Creat Clear Calc Estimated GFR Random Glucose Estimat Average Glucose 94 Hemoglobin A1c % 4.9 Calcium Magnesium 2.0 Triglycerides 66 Cholesterol 235 LDL Cholesterol, Calc 139 HDL Cholesterol 83 Vitamin B12 671 Folate > 20.0 TSH 0.55 Free T4 1.06 01/13/22 01/13/22 13:47 13:47 WBC 8.3 RBC 4.06 L Hgb 12.7 Hct 38.9 MCV 95.8 MCH 31.3 MCHC 32.6 RDW 13.1 Plt Count 236 MPV 8.1 L Immature Gran % (Auto) 0.5 H Neut % (Auto) 73.9 H Lymph % (Auto) 17.9 L [place] % (Auto) 6.4 Eos % (Auto) 1.1 Baso % (Auto) 0.2 Lymph # (Auto) 1.5 [place] # (Auto) 0.5 Eos # (Auto) 0.1 Baso # (Auto) 0.0 Abs Immat Gran (auto) 0.04 H Absolute Neuts (auto) 6.1 Absolute Nucleated RBC 0.000 Nucleated RBC % (auto) 0.0 Sodium 137 Potassium 4.4 Chloride 103 Carbon Dioxide 26 Anion Gap 12 BUN 28 H Creatinine 1.32 Estim Creat Clear Calc 52.5 Estimated GFR 42 Random Glucose 112 Estimat Average Glucose Hemoglobin A1c % Calcium 9.6 Magnesium Triglycerides Cholesterol LDL Cholesterol, Calc HDL Cholesterol Vitamin B12 Folate TSH Free T4 Airway Mallampati Class: II TM Dist: >3cm Neck ROM: Full Loose/Missing/Broken Teeth: No Heart: RRR Lungs: CTA Assessment and Plan Assessment Anesthesia Assessment: Anesthesia Plan Discussed and Chart Reviewed Final Anesthetic Review NPO: Yes ASA Class: II Final Preanesthetic Review: Meds/Allgs Chart Reviewed, Consent Obtained/Reviewed and Anes Risks/Benef Reviewed Patient Risk: Low Procedure Risk: Intermediate Anesthetic Plan Anesthetic Plan: GA Disposition: Standard PACU
--- NOTE | 2022-01-18 07:46 | HO.ECTPROC ---
ECT Procedure Note Diagnosis/Treatment Date of Service: 01/18/22 Diagnosis: Major Depressive Disorder Treatment: Series Interval Clinical Notes: The patient reported depressive symptoms with suicidal thoughts, historically, she did well with ECT at [facility]. ECT Settings Device: THYMATRON DGx Electrode Placement: Right Unilateral Program/Pulse Width: 0.50 Energy Percent: 100 Seizure Duration By EEG (in seconds): 65 By Motor Observation (in seconds): 0 Medications Administration General Anesthetic: Etomidate (16) Muscle Relaxant: Succinylcholine (100) Ancillary Medications Anti-emetics: Zofran - Pre ECT Miscillaneous Medications: Propofol Airway Management Airway Management: Bag Mask Ventilation Treatment Recommendations No Changes Recommended: No change Pt Tolerated Procedure w/o Issue: Yes
--- NOTE | 2022-01-18 09:18 | PC.NURSE ---
Report received from SHABANA Morfin. Patient completed ECT, brought to M3 without incident. Patient alert, denies pain, denies dizziness, reports only fatigue at this time. Assisted back to bed, vitals completed, meals resumed.
[2022-01-18] MEDS: Sodium Bicarbonate 650 MG TABLET 1300 MG PO ×2 (10:47→21:29)
[2022-01-18] MEDS: ARIPiprazole 10 MG TABLET PO (10:47)
[2022-01-18] MEDS: Methylphenidate HCl 5 MG TABLET 7.5 MG PO ×2 (10:48→12:49)
[2022-01-18] MEDS: Acetaminophen 325 MG TABLET 650 MG PO (12:06)
--- NOTE | 2022-01-18 14:11 | HO.PSYCHPN ---
Subjective Subjective Date of Service: 01/18/22 Reason For Visit: Unspecified bipolar d/o Interim History: pt had ECT this morning. seen in the [facility] looking somewhat flat and slowed, but once in interview room seated and talking pt appears more fluid and even spends much of the interview smiling. mood better this morning. no SI. per staff, ECT today. slept 6 hours overnight. getting adequate sleep with medications. good appetite. dep 5, anx 3. + SI yesterday, the idea of slitting her wrists had occurred to her. no intent. attending to ADLs. shelly shift denied SI. Mental Status Exam Mental Status Exam Narrative: appropriately dressed and groomed. cooperative with interview. good eye contact. speech soft, nml rate and amount. thoughts linear and logical. affect full range. mood better. no SI, no HI/AVH expressed. Diagnostics Vital Signs (24Hr): Vital Signs - 24 hr 01/17/22 18:00 01/18/22 06:00 01/18/22 06:01 Temperature 97.8 F 97.6 F 97.8 F Pulse Rate 74 70 70 Respiratory Rate 16 16 18 Blood Pressure 112/60 108/60 108/60 Pulse Oximetry 99 98 98 01/18/22 06:44 01/18/22 07:56 01/18/22 08:01 Temperature 97.2 F 98.1 F Pulse Rate 72 77 77 Respiratory Rate 18 18 14 Blood Pressure 97/57 L 118/57 L 115/63 Pulse Oximetry 96 96 96 01/18/22 08:06 01/18/22 08:12 01/18/22 08:27 Temperature Pulse Rate 80 78 70 Respiratory Rate 13 12 12 Blood Pressure 118/72 108/57 L 110/59 L Pulse Oximetry 94 95 97 01/18/22 08:41 01/18/22 09:14 Temperature 97.2 F 97.6 F Pulse Rate 75 77 Respiratory Rate 12 18 Blood Pressure 112/66 120/69 Pulse Oximetry 97 98 BMI result Body Mass Index 29.7 Labs Results: 01/13/22 13:47 01/13/22 13:47 Medications Medications Current Medications Acetaminophen (Acetaminophen 325 Mg Tablet) 650 mg PO Q6H PRN PRN Reason: Headache/Pain Mild Scale (1-3) Last Admin: 01/18/22 12:06 Dose: 650 mg Documented by: Al Hydroxide/Mg Hydroxide (Magnesium Hydrox/Alum Hydrox 30 Ml Oral.Susp) 30 ml PO Q6H PRN PRN Reason: Heartburn/Nausea Aripiprazole (Aripiprazole 10 Mg Tablet) 10 mg PO DAILY [facility] Last Admin: 01/18/22 10:47 Dose: 10 mg Documented by: Bacitracin (Bacitracin Oint 14 Gm Tube) 1 appl TOPICAL BID PRN; Protocol PRN Reason: blister Fluoxetine HCl (Fluoxetine Hcl 20 Mg Capsule) 80 mg PO BEDTIME [facility] Last Admin: 01/17/22 21:38 Dose: 80 mg Documented by: Hydroxyzine HCl (Hydroxyzine Hcl 25 Mg Tablet) 25 mg PO Q6H PRN PRN Reason: Anxiety Loperamide HCl (Loperamide Hcl 2 Mg Capsule) 2 mg PO ONCE ONE Stop: 01/19/22 11:09 Magnesium Hydroxide (Milk Of Magnesia 30 Ml Oral.Susp) 30 ml PO DAILY PRN PRN Reason: Constipation Methylphenidate HCl (Methylphenidate Hcl 5 Mg Tablet) 7.5 mg PO BID@0800,1300 [facility] Last Admin: 01/18/22 12:49 Dose: 7.5 mg Documented by: Sodium Bicarbonate (Sodium Bicarbonate 650 Mg Tablet) 1,300 mg PO BID [facility] Last Admin: 01/18/22 10:47 Dose: 1,300 mg Documented by: Sumatriptan Succinate (Sumatriptan Succinate 100 Mg Tablet) 100 mg PO DAILY PRN PRN Reason: Migraine Headache Trazodone HCl (Trazodone Hcl 50 Mg Tablet) 50 mg PO BEDTIME PRN PRN Reason: Insomnia Last Admin: 01/17/22 21:38 Dose: 50 mg Documented by: Allergies Allergies Allergy/AdvReac Type Severity Reaction Status Date / Time Sulfa (Sulfonamide AdvReac Wheezing Verified 01/12/22 00:35 Antibiotics) Assessment & Plan Assessment & Plan (1) Depressive disorder: Status: Acute Code(s): F32.A - Depression, unspecified (2) PTSD (post-traumatic stress disorder): Status: Acute Code(s): F43.10 - Post-traumatic stress disorder, unspecified (3) Routine medical exam: Status: Acute Code(s): Z00.00 - Encounter for general adult medical examination without abnormal findings Plan continue outpt medications; methylphenidate increased from 5 BID to 7.5 BID as of 01/14. medicine consult for ECT clearance completed; pt cleared. pt's brought in mouth guard for MI. on Q5 mnin checks NOC. SUSAN signed, faxed to [facility] 01/14/22. ECT records received 01/15. ECT started thursday 01/18. I spent ___25___ minutes with the patient and/or on the patient floor today, greater than?50% of which was spent counseling/coordinating care. Reason for contiued inpatient stay Substantial Risk for: harm to self, inability to function and rapid decompensation
[2022-01-18] MEDS: SUMAtriptan succinate 100 MG TABLET PO (18:49)
[2022-01-18] MEDS: FLUoxetine HCl 20 MG CAPSULE 80 MG PO (21:29)
[2022-01-18] MEDS: traZODone HCL 50 MG TABLET PO (21:29)
[2022-01-19] MEDS: traZODone HCL 50 MG TABLET PO (01:45)
[2022-01-19] MEDS: Sodium Bicarbonate 650 MG TABLET 1300 MG PO ×2 (09:44→21:09)
[2022-01-19] MEDS: Methylphenidate HCl 5 MG TABLET 7.5 MG PO ×2 (09:44→13:34)
[2022-01-19] MEDS: ARIPiprazole 10 MG TABLET PO (09:44)
[2022-01-19 10:03] VITALS: BP 101/56; PULSE 81; RESP 18; TEMP 36.4; O2SAT 95
[2022-01-19] MEDS: Loperamide HCl 2 MG CAPSULE PO (13:34)
--- NOTE | 2022-01-19 14:49 | HO.PSYCHPN ---
Subjective Subjective Date of Service: 01/19/22 Reason For Visit: Unspecified bipolar d/o Interim History: pt reports she continues to feel pretty good. reviewed with pt plan as discussed with Dr. Hartley yesterday: do sessions this week and then discharge to continue Tx with her previous outpatient providers at [facility]. pt expressed understanding of and agreement with the plan. next session tomorrow morning. c/o insomnia, agreed to increase trazodone from 50 mg at HS to 100. per staff, visible, social. little amounts of anx/dep. mood improved. no SI/HI/AVH. mild CATALAN, then got imitrex for 8/10 CATALAN later in the day. got trazodone at 0145 for insomnia, then slept. Mental Status Exam Mental Status Exam Narrative: appropriately dressed and groomed. cooperative with interview. good eye contact. speech soft, nml rate and amount. thoughts linear and logical. affect full range. mood pretty good. no SI/HI/AVH expressed. Diagnostics Vital Signs (24Hr): Vital Signs - 24 hr 01/18/22 18:00 01/19/22 10:03 Temperature 97.8 F 97.5 F Pulse Rate 63 81 Respiratory Rate 18 18 Blood Pressure 127/70 101/56 L Pulse Oximetry 96 95 BMI result Body Mass Index 29.7 Labs Results: 01/13/22 13:47 01/13/22 13:47 Medications Medications Current Medications Acetaminophen (Acetaminophen 325 Mg Tablet) 650 mg PO Q6H PRN PRN Reason: Headache/Pain Mild Scale (1-3) Last Admin: 01/18/22 12:06 Dose: 650 mg Documented by: Al Hydroxide/Mg Hydroxide (Magnesium Hydrox/Alum Hydrox 30 Ml Oral.Susp) 30 ml PO Q6H PRN PRN Reason: Heartburn/Nausea Aripiprazole (Aripiprazole 10 Mg Tablet) 10 mg PO DAILY [facility] Last Admin: 01/19/22 09:44 Dose: 10 mg Documented by: Bacitracin (Bacitracin Oint 14 Gm Tube) 1 appl TOPICAL BID PRN; Protocol PRN Reason: blister Fluoxetine HCl (Fluoxetine Hcl 20 Mg Capsule) 80 mg PO BEDTIME [facility] Last Admin: 01/18/22 21:29 Dose: 80 mg Documented by: Hydroxyzine HCl (Hydroxyzine Hcl 25 Mg Tablet) 25 mg PO Q6H PRN PRN Reason: Anxiety Magnesium Hydroxide (Milk Of Magnesia 30 Ml Oral.Susp) 30 ml PO DAILY PRN PRN Reason: Constipation Methylphenidate HCl (Methylphenidate Hcl 5 Mg Tablet) 7.5 mg PO BID@0800,1300 [facility] Last Admin: 01/19/22 13:34 Dose: 7.5 mg Documented by: Sodium Bicarbonate (Sodium Bicarbonate 650 Mg Tablet) 1,300 mg PO BID [facility] Last Admin: 01/19/22 09:44 Dose: 1,300 mg Documented by: Sumatriptan Succinate (Sumatriptan Succinate 100 Mg Tablet) 100 mg PO DAILY PRN PRN Reason: Migraine Headache Last Admin: 01/18/22 18:49 Dose: 100 mg Documented by: Trazodone HCl (Trazodone Hcl 50 Mg Tablet) 50 mg PO BEDTIME PRN PRN Reason: Insomnia Last Admin: 01/19/22 01:45 Dose: 50 mg Documented by: Trazodone HCl (Trazodone Hcl 100 Mg Tablet) 100 mg PO BEDTIME [facility] Allergies Allergies Allergy/AdvReac Type Severity Reaction Status Date / Time Sulfa (Sulfonamide AdvReac Wheezing Verified 01/12/22 00:35 Antibiotics) Assessment & Plan Assessment & Plan (1) Depressive disorder: Status: Acute Code(s): F32.A - Depression, unspecified (2) PTSD (post-traumatic stress disorder): Status: Acute Code(s): F43.10 - Post-traumatic stress disorder, unspecified (3) Routine medical exam: Status: Acute Code(s): Z00.00 - Encounter for general adult medical examination without abnormal findings Plan continue outpt medications; methylphenidate increased from 5 BID to 7.5 BID as of 01/14. trazodone started and titrated to 100 mg QHS. medicine consult for ECT clearance completed; pt cleared. pt's brought in mouth guard for MI. on Q5 min checks NOC. SUSAN signed, faxed to [facility] 01/14/22. ECT records received 01/15. ECT started thursday 01/18. next session 01/20. NPO after MN. I spent __25____ minutes with the patient and/or on the patient floor today, greater than?50% of which was spent counseling/coordinating care. Reason for contiued inpatient stay Substantial Risk for: harm to self, inability to function and rapid decompensation
[2022-01-19 21:06] VITALS: BP 111/59; PULSE 83; RESP 16; O2SAT 96
[2022-01-19] MEDS: traZODone HCL 100 MG TABLET PO (21:09)
[2022-01-19] MEDS: FLUoxetine HCl 20 MG CAPSULE 80 MG PO (21:09)
[2022-01-20] VITALS (10 sets, daily range): BP systolic 98–120; BP diastolic 49–74; PULSE 55–86; RESP 12–18; TEMP 36.2–36.7; O2SAT 94–99
--- NOTE | 2022-01-20 07:06 | HO.ANESPROP2 ---
[facility] Active Problems Active Problems: All Active Problems (Updated 01/15/22 @ 15:22 by Che Villareal NP) Depressive disorder (Acute) Routine medical exam (Acute) PTSD (post-traumatic stress disorder) (Acute) Obstructive sleep apnea (Acute) Past Medical History Medical History Depressive disorder Irritable bowel Migraines Sleep apnea Family History Family history of problems with anesthesia: No Surgical History History of Problems with Anesthesia: No Social History Social History Household Members: Spouse Housing: House Do you presently have visiting nurse or other home services: No Patient Tobacco Use Status: Never used Tobacco Use of substances other than those prescribed or required for medical reasons: No Currently Displaying Signs/Symptoms of Drug Intoxication Withdrawal: No Any prior treatment program specific to substance use: No Have you been hit, kicked, punched, or otherwise hurt by someone within the past year? If so, by whom?: No Do you feel safe in your current relationship?: Yes Is there a partner from a previous relationship who is making you feel unsafe now?: No Are you made to feel afraid or neglected: No Spiritual Healthcare Practices: Faith [employer] Healthcare Practices: see above Cultural Healthcare Practices: none reported. Are you DNR?: No Advance Directives: No Advance Directives Information Provided: No Advance Directives on File: No Do you have thoughts of harming others: None Do you have a plan to hurt others: No Plan Recently lost weight without trying: No Eating poorly because of decreased appetite: No Nutrition Risks: No Nutritional Risk Patient : No : No Poor oral hygiene: No service: No Sexual orientation: Straight/Heterosexual Meds Allergies Allergy/AdvReac Type Severity Reaction Status Date / Time Sulfa (Sulfonamide AdvReac Wheezing Verified 01/12/22 00:35 Antibiotics) Active Medications: Current Medications Acetaminophen (Acetaminophen 325 Mg Tablet) 650 mg PO Q6H PRN PRN Reason: Headache/Pain Mild Scale (1-3) Last Admin: 01/18/22 12:06 Dose: 650 mg Documented by: Al Hydroxide/Mg Hydroxide (Magnesium Hydrox/Alum Hydrox 30 Ml Oral.Susp) 30 ml PO Q6H PRN PRN Reason: Heartburn/Nausea Aripiprazole (Aripiprazole 10 Mg Tablet) 10 mg PO DAILY [facility] Last Admin: 01/19/22 09:44 Dose: 10 mg Documented by: Bacitracin (Bacitracin Oint 14 Gm Tube) 1 appl TOPICAL BID PRN; Protocol PRN Reason: blister Fluoxetine HCl (Fluoxetine Hcl 20 Mg Capsule) 80 mg PO BEDTIME [facility] Last Admin: 01/19/22 21:09 Dose: 80 mg Documented by: Hydroxyzine HCl (Hydroxyzine Hcl 25 Mg Tablet) 25 mg PO Q6H PRN PRN Reason: Anxiety Magnesium Hydroxide (Milk Of Magnesia 30 Ml Oral.Susp) 30 ml PO DAILY PRN PRN Reason: Constipation Methylphenidate HCl (Methylphenidate Hcl 5 Mg Tablet) 7.5 mg PO BID@0800,1300 [facility] Last Admin: 01/19/22 13:34 Dose: 7.5 mg Documented by: Sodium Bicarbonate (Sodium Bicarbonate 650 Mg Tablet) 1,300 mg PO BID [facility] Last Admin: 01/19/22 21:09 Dose: 1,300 mg Documented by: Sumatriptan Succinate (Sumatriptan Succinate 100 Mg Tablet) 100 mg PO DAILY PRN PRN Reason: Migraine Headache Last Admin: 01/18/22 18:49 Dose: 100 mg Documented by: Trazodone HCl (Trazodone Hcl 50 Mg Tablet) 50 mg PO BEDTIME PRN PRN Reason: Insomnia Last Admin: 01/19/22 01:45 Dose: 50 mg Documented by: Trazodone HCl (Trazodone Hcl 100 Mg Tablet) 100 mg PO BEDTIME [facility] Last Admin: 01/19/22 21:09 Dose: 100 mg Documented by: Home Medications Medication Instructions Recorded Confirmed Last Taken Type aripiprazole 10 mg tablet (Abilify) 10 mg PO DAILY 01/12/22 01/12/22 Unknown History methylphenidate HCl 5 mg tablet 5 mg PO BID@0800,1300 01/12/22 01/12/22 01/10/22 History (Ritalin) [id number] acid See Rx Instructions .ROUTE .COMPLEX 01/12/22 Unknown History 400 mcg-vitamin K 80 mcg capsule (Multi For Her 50 Plus) sodium bicarbonate 650 mg tablet 650 mg PO QID PRN 01/12/22 01/12/22 Unknown History Exam Exam Date and Time: January 20, 2022 07 Height,Weight and Vital Signs: Height 5 ft 5 in Weight 81.193 kg Last Vital Signs Temp 97.3 F 01/20/22 06:25 Pulse 64 01/20/22 06:25 Resp 18 01/20/22 06:25 BP 106/49 L 01/20/22 06:25 Pulse Ox 97 01/20/22 06:25 Pertinent Lab Results Pertinent Lab Results: Laboratory Tests 01/12/22 01/12/22 01/12/22 07:33 07:33 07:33 WBC RBC Hgb Hct MCV MCH MCHC RDW Plt Count MPV Immature Gran % (Auto) Neut % (Auto) Lymph % (Auto) Iron % (Auto) Eos % (Auto) Baso % (Auto) Lymph # (Auto) Iron # (Auto) Eos # (Auto) Baso # (Auto) Abs Immat Gran (auto) Absolute Neuts (auto) Absolute Nucleated RBC Nucleated RBC % (auto) Sodium Potassium Chloride Carbon Dioxide Anion Gap BUN Creatinine Estim Creat Clear Calc Estimated GFR Random Glucose Estimat Average Glucose 94 Hemoglobin A1c % 4.9 Calcium Magnesium 2.0 Triglycerides 66 Cholesterol 235 LDL Cholesterol, Calc 139 HDL Cholesterol 83 Vitamin B12 671 Folate > 20.0 TSH 0.55 Free T4 1.06 01/13/22 01/13/22 13:47 13:47 WBC 8.3 RBC 4.06 L Hgb 12.7 Hct 38.9 MCV 95.8 MCH 31.3 MCHC 32.6 RDW 13.1 Plt Count 236 MPV 8.1 L Immature Gran % (Auto) 0.5 H Neut % (Auto) 73.9 H Lymph % (Auto) 17.9 L Iron % (Auto) 6.4 Eos % (Auto) 1.1 Baso % (Auto) 0.2 Lymph # (Auto) 1.5 Iron # (Auto) 0.5 Eos # (Auto) 0.1 Baso # (Auto) 0.0 Abs Immat Gran (auto) 0.04 H Absolute Neuts (auto) 6.1 Absolute Nucleated RBC 0.000 Nucleated RBC % (auto) 0.0 Sodium 137 Potassium 4.4 Chloride 103 Carbon Dioxide 26 Anion Gap 12 BUN 28 H Creatinine 1.32 Estim Creat Clear Calc 52.5 Estimated GFR 42 Random Glucose 112 Estimat Average Glucose Hemoglobin A1c % Calcium 9.6 Magnesium Triglycerides Cholesterol LDL Cholesterol, Calc HDL Cholesterol Vitamin B12 Folate TSH Free T4 Airway Mallampati Class: II TM Dist: >3cm Neck ROM: Full Heart: rrr Lungs: cta Assessment and Plan Assessment Anesthesia Assessment: Anesthesia Plan Discussed and Chart Reviewed Final Anesthetic Review Family History of Problems with Anesthesia: No History of Problems with Anesthesia: No NPO: Yes ASA Class: III Final Preanesthetic Review: No Changes in Pt Med Stat and Meds/Allgs Chart Reviewed Patient Risk: Intermediate Procedure Risk: Intermediate Anesthetic Plan Anesthetic Plan: GA Disposition: Standard PACU
--- NOTE | 2022-01-20 07:48 | MHC.SHP ---
Pre-Procedural Eval Section A Date of Service: 01/20/22 The patient is an INPATIENT: Yes Changes since office visit: Yes Patient answered all questions; No Cold of Flu in the past 2 weeks, No New Medical Problems and No Changes in Medication The History & Physical has been completed within 30 days and I have reviewed it.: Yes Section B Chief Complaint: Unspecified bipolar d/o Allergies: Allergies Allergy/AdvReac Type Severity Reaction Status Date / Time Sulfa (Sulfonamide AdvReac Wheezing Verified 01/12/22 00:35 Antibiotics) Plan I have reviewed the history and physical and performed a pertinent physical examination on my patient. No changes have occurred unless specified.
--- NOTE | 2022-01-20 08:09 | HO.ECTPROC ---
ECT Procedure Note Diagnosis/Treatment Date of Service: 01/20/22 Diagnosis: Major Depressive Disorder Previous ECT Date: 01/18/22 Current Treatment Number: 2 Treatment: Series Interval Clinical Notes: PT FELT SOMEWHAT BETTER AFTER FIRST TX ECT Settings Device: THYMATRON DGx Electrode Placement: Right Unilateral Program/Pulse Width: 0.50 Energy Percent: 100 Seizure Duration By EEG (in seconds): 51 Medications Administration General Anesthetic: Etomidate (16) Muscle Relaxant: Succinylcholine (100) Ancillary Medications Analgesics: Torodol - Pre ECT Anti-emetics: Zofran - Pre ECT Miscillaneous Medications: Propofol (30) Airway Management Airway Management: Bag Mask Ventilation Treatment Recommendations No Changes Recommended: No change Pt Tolerated Procedure w/o Issue: Yes
[2022-01-20] MEDS: Methylphenidate HCl 5 MG TABLET 7.5 MG PO ×2 (09:15→13:38)
[2022-01-20] MEDS: Sodium Bicarbonate 650 MG TABLET 1300 MG PO ×2 (09:15→21:00)
[2022-01-20] MEDS: ARIPiprazole 10 MG TABLET PO (09:15)
--- NOTE | 2022-01-20 15:01 | HO.PSYCHPN ---
Subjective Subjective Date of Service: 01/20/22 Reason For Visit: Unspecified bipolar d/o Interim History: pt reports she continues to feel well. was informed by rosalind she would be discharged tuesday; asked her to consider if she prefers that or discharge tuesday after a last session tuesday. she will consider the option. she reports yajaira keller at [facility] usually does her ECT. she states they gave her something in the PACU that was meant to prevent a CATALAN, and it worked. no CATALAN today. per staff, had a successful ECT session this morning. attending groups, feeling better mood-elder. anx/dep 12/17. CATALAN yesterday. calm, pleasant, interactive. Mental Status Exam Mental Status Exam Narrative: appropriately dressed and groomed. cooperative with interview. good eye contact. speech soft, nml rate and amount. thoughts linear and logical. affect flexible but somewhat constricted. mood remains improved from admission. no SI/HI/AVH expressed. Diagnostics Vital Signs (24Hr): Vital Signs - 24 hr 01/19/22 21:06 01/20/22 05:27 01/20/22 05:36 Temperature 97.2 F 97.2 F Pulse Rate 83 69 69 Respiratory Rate 16 16 16 Blood Pressure 111/59 L 107/61 107/61 Pulse Oximetry 96 97 97 01/20/22 06:25 01/20/22 08:14 01/20/22 08:19 Temperature 97.3 F 98.1 F Pulse Rate 64 55 65 Respiratory Rate 18 16 16 Blood Pressure 106/49 L 104/61 112/58 L Pulse Oximetry 97 98 98 01/20/22 08:24 01/20/22 08:29 01/20/22 08:44 Temperature 97.9 F Pulse Rate 71 76 74 Respiratory Rate 16 12 17 Blood Pressure 120/57 L 98/52 L 108/74 Pulse Oximetry 94 94 95 01/20/22 08:50 Temperature 97.8 F Pulse Rate 73 Respiratory Rate 17 Blood Pressure 108/53 L Pulse Oximetry 99 BMI result Body Mass Index 29.7 Labs Results: 01/13/22 13:47 01/13/22 13:47 Medications Medications Current Medications Acetaminophen (Acetaminophen 325 Mg Tablet) 650 mg PO Q6H PRN PRN Reason: Headache/Pain Mild Scale (1-3) Last Admin: 01/18/22 12:06 Dose: 650 mg Documented by: Al Hydroxide/Mg Hydroxide (Magnesium Hydrox/Alum Hydrox 30 Ml Oral.Susp) 30 ml PO Q6H PRN PRN Reason: Heartburn/Nausea Aripiprazole (Aripiprazole 10 Mg Tablet) 10 mg PO DAILY [facility] Last Admin: 01/20/22 09:15 Dose: 10 mg Documented by: Bacitracin (Bacitracin Oint 14 Gm Tube) 1 appl TOPICAL BID PRN; Protocol PRN Reason: blister Fluoxetine HCl (Fluoxetine Hcl 20 Mg Capsule) 80 mg PO BEDTIME [facility] Last Admin: 01/19/22 21:09 Dose: 80 mg Documented by: Hydroxyzine HCl (Hydroxyzine Hcl 25 Mg Tablet) 25 mg PO Q6H PRN PRN Reason: Anxiety Lactated Ringer's (Lr) 1,000 mls @ 50 mls/hr IVCONT .Q20H [facility] Last Admin: 01/20/22 09:16 Dose: Not Given Documented by: Magnesium Hydroxide (Milk Of Magnesia 30 Ml Oral.Susp) 30 ml PO DAILY PRN PRN Reason: Constipation Methylphenidate HCl (Methylphenidate Hcl 5 Mg Tablet) 7.5 mg PO BID@0800,1300 [facility] Last Admin: 01/20/22 13:38 Dose: 7.5 mg Documented by: Sodium Bicarbonate (Sodium Bicarbonate 650 Mg Tablet) 1,300 mg PO BID [facility] Last Admin: 01/20/22 09:15 Dose: 1,300 mg Documented by: Sumatriptan Succinate (Sumatriptan Succinate 100 Mg Tablet) 100 mg PO DAILY PRN PRN Reason: Migraine Headache Last Admin: 01/18/22 18:49 Dose: 100 mg Documented by: Trazodone HCl (Trazodone Hcl 50 Mg Tablet) 50 mg PO BEDTIME PRN PRN Reason: Insomnia Last Admin: 01/19/22 01:45 Dose: 50 mg Documented by: Trazodone HCl (Trazodone Hcl 100 Mg Tablet) 100 mg PO BEDTIME [facility] Last Admin: 01/19/22 21:09 Dose: 100 mg Documented by: Allergies Allergies Allergy/AdvReac Type Severity Reaction Status Date / Time Sulfa (Sulfonamide AdvReac Wheezing Verified 01/12/22 00:35 Antibiotics) Assessment & Plan Assessment & Plan (1) Depressive disorder: Status: Acute Code(s): F32.A - Depression, unspecified (2) PTSD (post-traumatic stress disorder): Status: Acute Code(s): F43.10 - Post-traumatic stress disorder, unspecified (3) Routine medical exam: Status: Acute Code(s): Z00.00 - Encounter for general adult medical examination without abnormal findings Plan continue outpt medications; methylphenidate increased from 5 BID to 7.5 BID as of 01/14. trazodone started and titrated to 100 mg QHS. medicine consult for ECT clearance completed; pt cleared. pt's brought in mouth guard for MI. on Q5 min checks NOC. SUSAN signed, faxed to [facility] 01/14/22. ECT records received 01/15. ECT sessions 01/18, 01/20. next session 01/22. NPO after MN. I spent ___25___ minutes with the patient and/or on the patient floor today, greater than?50% of which was spent counseling/coordinating care. Reason for contiued inpatient stay Substantial Risk for: rapid decompensation
[2022-01-20] MEDS: FLUoxetine HCl 20 MG CAPSULE 80 MG PO (20:59)
[2022-01-20] MEDS: traZODone HCL 100 MG TABLET PO (21:00)
[2022-01-21] MEDS: ARIPiprazole 10 MG TABLET PO (09:08)
[2022-01-21] MEDS: Sodium Bicarbonate 650 MG TABLET 1300 MG PO ×2 (09:08→21:35)
[2022-01-21] MEDS: Methylphenidate HCl 5 MG TABLET 7.5 MG PO ×2 (09:08→13:14)
[2022-01-21 11:09] VITALS: BP 114/62; PULSE 62; RESP 16; TEMP 36.5; O2SAT 96
--- NOTE | 2022-01-21 12:57 | HO.PSYCHPN ---
Subjective Subjective Date of Service: 01/21/22 Reason For Visit: Unspecified bipolar d/o Interim History: pt reports she continues to feel well. would prefer to discharge tomorrow or tuesday and [place] [facility] [place]. no complaints or requests. per staff, feeling better. anx/dep 11/16. attending groups, eating and sleeping well. reading on eves. safe. Mental Status Exam Mental Status Exam Narrative: appropriately dressed and groomed. cooperative with interview. good eye contact. speech soft, nml rate and amount. thoughts linear and logical. affect flexible and full range. mood remains improved from admission. no SI/HI/AVH expressed. Diagnostics Vital Signs (24Hr): Vital Signs - 24 hr 01/20/22 20:57 01/21/22 11:09 Temperature 97.4 F 97.7 F Pulse Rate 86 62 Respiratory Rate 16 Blood Pressure 103/63 114/62 Pulse Oximetry 95 96 BMI result Body Mass Index 29.7 Labs Results: 01/13/22 13:47 01/13/22 13:47 Medications Medications Current Medications Acetaminophen (Acetaminophen 325 Mg Tablet) 650 mg PO Q6H PRN PRN Reason: Headache/Pain Mild Scale (1-3) Last Admin: 01/18/22 12:06 Dose: 650 mg Documented by: Al Hydroxide/Mg Hydroxide (Magnesium Hydrox/Alum Hydrox 30 Ml Oral.Susp) 30 ml PO Q6H PRN PRN Reason: Heartburn/Nausea Aripiprazole (Aripiprazole 10 Mg Tablet) 10 mg PO DAILY [facility] Last Admin: 01/21/22 09:08 Dose: 10 mg Documented by: Bacitracin (Bacitracin Oint 14 Gm Tube) 1 appl TOPICAL BID PRN; Protocol PRN Reason: blister Fluoxetine HCl (Fluoxetine Hcl 20 Mg Capsule) 80 mg PO BEDTIME [facility] Last Admin: 01/20/22 20:59 Dose: 80 mg Documented by: Hydroxyzine HCl (Hydroxyzine Hcl 25 Mg Tablet) 25 mg PO Q6H PRN PRN Reason: Anxiety Lactated Ringer's (Lr) 1,000 mls @ 50 mls/hr IVCONT .Q20H [facility] Last Admin: 01/21/22 01:12 Dose: Not Given Documented by: Magnesium Hydroxide (Milk Of Magnesia 30 Ml Oral.Susp) 30 ml PO DAILY PRN PRN Reason: Constipation Methylphenidate HCl (Methylphenidate Hcl 5 Mg Tablet) 7.5 mg PO BID@0800,1300 [facility] Last Admin: 01/21/22 09:08 Dose: 7.5 mg Documented by: Sodium Bicarbonate (Sodium Bicarbonate 650 Mg Tablet) 1,300 mg PO BID [facility] Last Admin: 01/21/22 09:08 Dose: 1,300 mg Documented by: Sumatriptan Succinate (Sumatriptan Succinate 100 Mg Tablet) 100 mg PO DAILY PRN PRN Reason: Migraine Headache Last Admin: 01/18/22 18:49 Dose: 100 mg Documented by: Trazodone HCl (Trazodone Hcl 50 Mg Tablet) 50 mg PO BEDTIME PRN PRN Reason: Insomnia Last Admin: 01/19/22 01:45 Dose: 50 mg Documented by: Trazodone HCl (Trazodone Hcl 100 Mg Tablet) 100 mg PO BEDTIME [facility] Last Admin: 01/20/22 21:00 Dose: 100 mg Documented by: Allergies Allergies Allergy/AdvReac Type Severity Reaction Status Date / Time Sulfa (Sulfonamide AdvReac Wheezing Verified 01/12/22 00:35 Antibiotics) Assessment & Plan Assessment & Plan (1) Depressive disorder: Status: Acute Code(s): F32.A - Depression, unspecified (2) PTSD (post-traumatic stress disorder): Status: Acute Code(s): F43.10 - Post-traumatic stress disorder, unspecified (3) Routine medical exam: Status: Acute Code(s): Z00.00 - Encounter for general adult medical examination without abnormal findings Plan continue outpt medications; methylphenidate increased from 5 BID to 7.5 BID as of 01/14. trazodone started and titrated to 100 mg QHS. pt's brought in mouth guard for MI. on Q5 min checks NOC. SUSAN signed, [place] [facility] [place]. ECT records received 01/15. ECT sessions 01/18, 01/20. next session 01/22. NPO after MN. coordinating care [place] [facility] [place] continuation of ECT after discharge. I spent __25____ minutes with the patient and/or on the patient floor today, greater than?50% of which was spent counseling/coordinating care. Reason for contiued inpatient stay Substantial Risk for: inability to function and rapid decompensation
[2022-01-21 15:40] VITALS: BMI 30.1
[2022-01-21 21:28] VITALS: BP 97/60; PULSE 72; TEMP 36.8; O2SAT 96
[2022-01-21 21:30] VITALS: BP 104/69; PULSE 64; TEMP 36.2; O2SAT 97
[2022-01-21] MEDS: traZODone HCL 100 MG TABLET PO (21:35)
[2022-01-21] MEDS: FLUoxetine HCl 20 MG CAPSULE 80 MG PO (21:35)
[2022-01-22] VITALS (10 sets, daily range): BP systolic 96–130; BP diastolic 56–71; PULSE 61–87; RESP 12–20; TEMP 36.1–36.7; O2SAT 97–100
[2022-01-22] MEDS: ARIPiprazole 10 MG TABLET PO (10:21)
[2022-01-22] MEDS: Sodium Bicarbonate 650 MG TABLET 1300 MG PO ×2 (10:21→21:41)
[2022-01-22] MEDS: Methylphenidate HCl 5 MG TABLET 7.5 MG PO (10:21)
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
--- NOTE | 2022-01-22 14:45 | HO.ANESPROP2 ---
[facility] Active Problems Active Problems: All Active Problems (Updated 01/15/22 @ 15:22 by Che Villareal NP) Depressive disorder (Acute) Routine medical exam (Acute) PTSD (post-traumatic stress disorder) (Acute) Obstructive sleep apnea (Acute) Past Medical History Medical History Depressive disorder Irritable bowel Migraines Sleep apnea Family History Family history of problems with anesthesia: No Surgical History History of Problems with Anesthesia: No Social History Social History Household Members: Spouse Housing: House Do you presently have visiting nurse or other home services: No Patient Tobacco Use Status: Never used Tobacco Use of substances other than those prescribed or required for medical reasons: No Currently Displaying Signs/Symptoms of Drug Intoxication Withdrawal: No Any prior treatment program specific to substance use: No Have you been hit, kicked, punched, or otherwise hurt by someone within the past year? If so, by whom?: No Do you feel safe in your current relationship?: Yes Is there a partner from a previous relationship who is making you feel unsafe now?: No Are you made to feel afraid or neglected: No Spiritual Healthcare Practices: [employer] Healthcare Practices: see above Cultural Healthcare Practices: none reported. Are you DNR?: No Advance Directives: No Advance Directives Information Provided: No Advance Directives on File: No Do you have thoughts of harming others: None Do you have a plan to hurt others: No Plan Recently lost weight without trying: No Eating poorly because of decreased appetite: No Nutrition Risks: No Nutritional Risk Patient : No : No Poor oral hygiene: No service: No Sexual orientation: Straight/Heterosexual Meds Allergies Allergy/AdvReac Type Severity Reaction Status Date / Time Sulfa (Sulfonamide AdvReac Wheezing Verified 01/12/22 00:35 Antibiotics) Active Medications: Current Medications Acetaminophen (Acetaminophen 325 Mg Tablet) 650 mg PO Q6H PRN PRN Reason: Headache/Pain Mild Scale (1-3) Last Admin: 01/18/22 12:06 Dose: 650 mg Documented by: Al Hydroxide/Mg Hydroxide (Magnesium Hydrox/Alum Hydrox 30 Ml Oral.Susp) 30 ml PO Q6H PRN PRN Reason: Heartburn/Nausea Aripiprazole (Aripiprazole 10 Mg Tablet) 10 mg PO DAILY [facility] Last Admin: 01/22/22 10:21 Dose: 10 mg Documented by: Bacitracin (Bacitracin Oint 14 Gm Tube) 1 appl TOPICAL BID PRN; Protocol PRN Reason: blister Fluoxetine HCl (Fluoxetine Hcl 20 Mg Capsule) 80 mg PO BEDTIME [facility] Last Admin: 01/21/22 21:35 Dose: 80 mg Documented by: Hydroxyzine HCl (Hydroxyzine Hcl 25 Mg Tablet) 25 mg PO Q6H PRN PRN Reason: Anxiety Lactated Ringer's (Lr) 1,000 mls @ 50 mls/hr IVCONT .Q20H [facility] Last Admin: 01/21/22 22:47 Dose: Not Given Documented by: Magnesium Hydroxide (Milk Of Magnesia 30 Ml Oral.Susp) 30 ml PO DAILY PRN PRN Reason: Constipation Methylphenidate HCl (Methylphenidate Hcl 5 Mg Tablet) 7.5 mg PO BID@0800,1300 [facility] Last Admin: 01/22/22 10:21 Dose: 7.5 mg Documented by: Sodium Bicarbonate (Sodium Bicarbonate 650 Mg Tablet) 1,300 mg PO BID [facility] Last Admin: 01/22/22 10:21 Dose: 1,300 mg Documented by: Sumatriptan Succinate (Sumatriptan Succinate 100 Mg Tablet) 100 mg PO DAILY PRN PRN Reason: Migraine Headache Last Admin: 01/18/22 18:49 Dose: 100 mg Documented by: Trazodone HCl (Trazodone Hcl 50 Mg Tablet) 50 mg PO BEDTIME PRN PRN Reason: Insomnia Last Admin: 01/19/22 01:45 Dose: 50 mg Documented by: Trazodone HCl (Trazodone Hcl 100 Mg Tablet) 100 mg PO BEDTIME [facility] Last Admin: 01/21/22 21:35 Dose: 100 mg Documented by: Home Medications Medication Instructions Recorded Confirmed Last Taken Type aripiprazole 10 mg tablet (Abilify) 10 mg PO DAILY 01/12/22 01/12/22 Unknown History [id number]-macjepee-stgdj acid See Rx Instructions .ROUTE .COMPLEX 01/12/22 Unknown History 400 mcg-vitamin K 80 mcg capsule (Multi For Her 50 Plus) sodium bicarbonate 650 mg tablet 650 mg PO QID PRN 01/12/22 01/12/22 Unknown History Exam Exam Date and Time: January 22, 2022 1445 Height,Weight and Vital Signs: Height 5 ft 5 in Weight 82.1 kg Last Vital Signs Temp 97.5 F 01/22/22 14:01 Pulse 61 01/22/22 14:01 Resp 14 01/22/22 14:01 BP 96/56 L 01/22/22 14:01 Pulse Ox 99 01/22/22 14:01 Pertinent Lab Results Pertinent Lab Results: Laboratory Tests 01/12/22 01/12/22 01/12/22 07:33 07:33 07:33 WBC RBC Hgb Hct MCV MCH MCHC RDW Plt Count MPV Immature Gran % (Auto) Neut % (Auto) Lymph % (Auto) Avery % (Auto) Eos % (Auto) Baso % (Auto) Lymph # (Auto) Avery # (Auto) Eos # (Auto) Baso # (Auto) Abs Immat Gran (auto) Absolute Neuts (auto) Absolute Nucleated RBC Nucleated RBC % (auto) Sodium Potassium Chloride Carbon Dioxide Anion Gap BUN Creatinine Estim Creat Clear Calc Estimated GFR Random Glucose Estimat Average Glucose 94 Hemoglobin A1c % 4.9 Calcium Magnesium 2.0 Triglycerides 66 Cholesterol 235 LDL Cholesterol, Calc 139 HDL Cholesterol 83 Vitamin B12 671 Folate > 20.0 TSH 0.55 Free T4 1.06 01/13/22 01/13/22 13:47 13:47 WBC 8.3 RBC 4.06 L Hgb 12.7 Hct 38.9 MCV 95.8 MCH 31.3 MCHC 32.6 RDW 13.1 Plt Count 236 MPV 8.1 L Immature Gran % (Auto) 0.5 H Neut % (Auto) 73.9 H Lymph % (Auto) 17.9 L Avery % (Auto) 6.4 Eos % (Auto) 1.1 Baso % (Auto) 0.2 Lymph # (Auto) 1.5 Avery # (Auto) 0.5 Eos # (Auto) 0.1 Baso # (Auto) 0.0 Abs Immat Gran (auto) 0.04 H Absolute Neuts (auto) 6.1 Absolute Nucleated RBC 0.000 Nucleated RBC % (auto) 0.0 Sodium 137 Potassium 4.4 Chloride 103 Carbon Dioxide 26 Anion Gap 12 BUN 28 H Creatinine 1.32 Estim Creat Clear Calc 52.5 Estimated GFR 42 Random Glucose 112 Estimat Average Glucose Hemoglobin A1c % Calcium 9.6 Magnesium Triglycerides Cholesterol LDL Cholesterol, Calc HDL Cholesterol Vitamin B12 Folate TSH Free T4 Airway Mallampati Class: II TM Dist: >3cm Neck ROM: Full Assessment and Plan Assessment Anesthesia Assessment: Anesthesia Plan Discussed and Chart Reviewed Final Anesthetic Review Family History of Problems with Anesthesia: No History of Problems with Anesthesia: No NPO: Yes ASA Class: II Final Preanesthetic Review: No Changes in Pt Med Stat, Meds/Allgs Chart Reviewed, Consent Obtained/Reviewed and Anes Risks/Benef Reviewed Patient Risk: Intermediate Procedure Risk: Intermediate Anesthetic Plan Anesthetic Plan: GA Disposition: Standard PACU
--- NOTE | 2022-01-22 15:01 | MHC.SHP ---
Pre-Procedural Eval Section A Date of Service: 01/22/22 The patient is an INPATIENT: Yes Changes since office visit: Yes Changes in Medication and Yes Patient answered all questions; No Cold of Flu in the past 2 weeks and No New Medical Problems The History & Physical has been completed within 30 days and I have reviewed it.: Yes Section B Chief Complaint: Unspecified bipolar d/o Allergies: Allergies Allergy/AdvReac Type Severity Reaction Status Date / Time Sulfa (Sulfonamide AdvReac Wheezing Verified 01/12/22 00:35 Antibiotics) Plan I have reviewed the history and physical and performed a pertinent physical examination on my patient. No changes have occurred unless specified.
--- NOTE | 2022-01-22 15:17 | P.PCN_ITS ---
ECT Procedure Note Diagnosis/Treatment Date of Service: 01/22/22 Diagnosis: Major Depressive Disorder Previous ECT Date: 01/20/22 Current Treatment Number: 3 Treatment: Series Interval Clinical Notes: pt feeling more stable tent d/c for tomm f/u tx [facility] ECT Settings Device: THYMATRON DGx Electrode Placement: Right Unilateral Program/Pulse Width: 0.25 Energy Percent: 75 Seizure Duration By EEG (in seconds): 40 Medications Administration General Anesthetic: Etomidate (16) Muscle Relaxant: Succinylcholine (100) Ancillary Medications Analgesics: Torodol - Pre ECT Anti-emetics: Zofran - Pre ECT Miscillaneous Medications: Propofol (30 mg post) Airway Management Airway Management: Bag Mask Ventilation Treatment Recommendations No Changes Recommended: No change Notes: outpt ect [facility] in 3 days Pt Tolerated Procedure w/o Issue: Yes
[2022-01-22] MEDS: FLUoxetine HCl 20 MG CAPSULE 80 MG PO (21:41)
[2022-01-22] MEDS: traZODone HCL 100 MG TABLET PO (21:41)
[2022-01-22] MEDS: Milk of Magnesia 30 ML ORAL.SUSP PO (21:52)
[2022-01-23] MEDS: Sodium Bicarbonate 650 MG TABLET 1300 MG PO (09:12)
[2022-01-23] MEDS: ARIPiprazole 10 MG TABLET PO (09:13)
[2022-01-23] MEDS: Methylphenidate HCl 5 MG TABLET 7.5 MG PO (09:13)
--- NOTE | 2022-01-23 09:48 | PC.NURSE ---
Rowena is alert, fully oriented, pleasant and cooperative with discharge rocess. SHe denies ideation, plan or intent to harm self or others. She denies perceptual disturbance. She verbalizes understanding of discharge plan including appointments, medications and ect schedule outpatient. SHe denies current physical complaint.
== END 2022-01-23 10:15 | disposition home or self-care (01) | DRG 754 ==
PROVIDERS: Psychiatry & Neurology Psychiatry; Registered Nurse; Admitting Provider Psychiatry & Neurology Psychiatry; PCP Internal Medicine; Visit Provider Psychiatry & Neurology Psychiatry
PROC: GZB4ZZZ Other Electroconvulsive Therapy (ICD-10-PCS; CPT 90870; principal; 2022-01-18 07:30)
DX: F32.A Depression, unspecified (principal); R45.851 Suicidal ideations; F43.10 Post-traumatic stress disorder, unspecified; G47.33 Obstructive sleep apnea (adult) (pediatric); Z88.2 Allergy status to sulfonamides; Z79.899 Other long term (current) drug therapy
CPT/HCPCS: 36415; 80048; 80061; 82607; 82746; 83036; 83735; 84439; 84443; 85025; 90870; 93005; J0330; J1885; J2405